=== PATIENT | female | born 1960 | race Caucasian/White ===

== ENCOUNTER 2017-06-01 20:16 | Emergency (ER) | payer OTHER ==
[~2017-06-01] VITALS: Ht 165.1 cm; Wt 89.8 kg
[~2017-06-01 20:16] MED LIST: ASPIR LOW81 MG PO; CIPRO500 MG PO; ENALAPRIL MALEA10 MG PO; METFORMIN ER500 M1 PO; SIMVASTATIN20 M1 PO; Z PO
[2017-06-01 20:23] VITALS: Ht 165.1 cm; Wt 89.8 kg
[2017-06-01 22:41] VITALS: BP 177/103
== END 2017-06-01 22:41 | disposition home or self-care (01) ==
LOC: ED 20:16
DX: S63.615A Unspecified sprain of left ring finger, initial encounter (principal); E11.9 Type 2 diabetes mellitus without complications; Z90.49 Acquired absence of other specified parts of digestive tract; X58.XXXA Exposure to other specified factors, initial encounter; Y93.89 Activity, other specified; Y92.89 Other specified places as the place of occurrence of the external cause; Y99.8 Other external cause status
CPT/HCPCS: A4570

== ENCOUNTER 2017-11-01 03:56 | Inpatient (IN) | payer OTHER ==
[~2017-11-01] VITALS: Ht 162.6 cm; Wt 77.7 kg
[2017-11-01 05:22] LABS: BASOPHIL % 0.5 % (0-2); PLATELET COUNT 193 x10^3mcL (130-400); RED CELL DISTRIBUTION WIDTH 14.4 % (11.5-14.5)
[2017-11-01 05:32] LABS: CALCIUM 8.6 mg/dL (8.5-10.1); CARBON DIOXIDE 31.1 mmol/L (21-32); CHLORIDE SERUM 106 mmol/L (98-107); CREATININE SERUM 0.6 mg/dL (0.6-1.0); GFR1 > 60 mL/min; GLUCOSE SERUM 122 mg/dL (74-106); SODIUM SERUM 140 mmol/L (136-145)
[2017-11-01 05:37] LABS: ALBUMIN 3.5 g/dL (3.4-5.0); ALKALINE PHOSPHATASE 93 U/L (46-116); ALT/SGPT 30 U/L (14-59); AST/SGOT 28 U/L (15-37); BILIRUBIN TOTAL 0.22 mg/dL (0.20-1.00); TOTAL PROTEIN, SERUM 7.6 g/dL (6.4-8.2)
[2017-11-01 06:56] LABS: microscopic required? YES; urine erythrocyte TRACE (NEGATIVE)
[2017-11-01 07:27] LABS: T3 TOTAL 1.77 ng/mL
[2017-11-01 07:43] LABS: AMPHETAMINE QUAL UR NONE DETECTED (See below)
[2017-11-01 07:59] LABS: MAGNESIUM 2.1 mg/dL (1.8-2.4); PHOSPHOROUS 3.3 mg/dL (2.5-4.9)
[2017-11-01 08:30] LABS: FREE T4 1.02 ng/dL (0.76-1.46); T4(THYROXINE) 9.5 ug/dL (4.7-13.3)
[2017-11-01 11:02] VITALS: BP 155/82
[2017-11-01 13:40] VITALS: BP 163/92
[2017-11-01 17:17] VITALS: BP 159/88
[2017-11-02 06:04] VITALS: BP 138/79
[2017-11-02 06:37] LABS: BASOPHIL % 0.5 % (0-2); PLATELET COUNT 207 x10^3mcL (130-400); RED CELL DISTRIBUTION WIDTH 14.1 % (11.5-14.5)
[2017-11-02 06:49] LABS: CALCIUM 7.8 mg/dL (8.5-10.1); CARBON DIOXIDE 26.3 mmol/L (21-32); CHLORIDE SERUM 107 mmol/L (98-107); CREATININE SERUM 0.5 mg/dL (0.6-1.0); GFR1 > 60 mL/min; GLUCOSE SERUM 100 mg/dL (74-106); POTASSIUM SERUM 3.3 mmol/L (3.5-5.1); SODIUM SERUM 142 mmol/L (136-145)
[2017-11-02] MEDS ORDERED: NOR10 PO (09:03)
[2017-11-02 09:33] VITALS: BP 137/77
[2017-11-02 10:57] VITALS: BP 137/77
[2017-11-02] MEDS ORDERED: METFORMIN HCL500 MG PO (11:42)
== END 2017-11-02 12:08 | disposition home or self-care (01) | DRG 243 ==
LOC: ED 03:56 → DU 06:03
PROVIDERS: Emergency Medicine; Internal Medicine
DX: K21.9 Gastro-esophageal reflux disease without esophagitis (principal); N17.0 Acute kidney failure with tubular necrosis; D68.59 Other primary thrombophilia; E11.65 Type 2 diabetes mellitus with hyperglycemia; I08.1 Rheumatic disorders of both mitral and tricuspid valves; I10 Essential (primary) hypertension; E78.5 Hyperlipidemia, unspecified; Z79.84 Long term (current) use of oral hypoglycemic drugs; E78.00 Pure hypercholesterolemia, unspecified
CPT/HCPCS: 83880; 84439; 85378; J7030; Q0092